=== PATIENT | female | born 1970 | race Caucasian/White ===

== ENCOUNTER → 2021-06-27 09:42 | Outpatient (CLI) | payer OTHER, SELFPAY ==
--- NOTE | ~2021-06-27 | MR_ITS ---
EXAMINATION: MR brain/brain stem wo con EXAM DATE: 06/27/2021 10:17 INDICATION: Migraine. TECHNIQUE: Magnetic resonance imaging (MRI) of the brain/brain stem obtained without contrast. Sagitt al T1, axial diffusion, gradient echo (T2*), T1, T2, FLAIR sequences obtained. There is no prior st udy for comparison. FINDINGS: There are no areas of restricted diffusion to suggest acute infarction. There is no acute hemorrhage seen on the T2*, a hemosiderin sensitive sequence. No intraparenchymal brain mass. The ve ntricles are normal in size. There are no extra-axial collections. Flow voids are seen in the cereb ral arteries on the T2-weighted sequences consistent with their expected patency. The orbits are unr emarkable. Soft tissue is unremarkable. IMPRESSION: Unremarkable brain MRI examination. Reviewed, dictated and finalized at location B.
== END ==
PROVIDERS: PCP Emergency Medicine; Visit Provider Emergency Medicine
DX: G43.909 Migraine, unspecified, not intractable, without status migrainosus (principal)
CPT/HCPCS: 70551

== ENCOUNTER → 2021-09-19 03:35 | Outpatient (CLI) | payer OTHER, SELFPAY ==
[2021-09-19 16:43] LABS: SARS-CoV-2 RNA PCR Negative
== END ==
PROVIDERS: PCP Emergency Medicine; Visit Provider Internal Medicine Gastroenterology
DX: Z01.812 Encounter for preprocedural laboratory examination (principal); Z20.822 Contact with and (suspected) exposure to COVID-19
CPT/HCPCS: C9803; U0003; U0005

== ENCOUNTER 2021-09-22 02:01 | Day surgery (SDC) | payer OTHER, SELFPAY ==
[2021-09-03 13:33] VITALS: BMI 30.8
[2021-09-22 08:30] VITALS: BP 133/82; PULSE 80; RESP 18; TEMP 36.7; O2SAT 97; BMI 33.7
[2021-09-22] MEDS: LACTATED RINGERS 1,000 ML 150 ML IV CONT (08:37)
--- NOTE | 2021-09-22 08:50 | WPDANESEPPF ---
Anes - Initial Pre Proc Eval Procedure: Operation Date: 09/22/21 09:15 Proposed Procedures p Screening Colonoscopy - Romie Osorio MD Date/Time: 09/22/21 08:50 Surgeon: Romie Osorio MD Pre Op Diagnosis: neoplasm screening Patient Data Age: 50 Gender: F Height: 1.65 m Weight: 92 kg Last Vital Signs Temp 98.1 F 09/22/21 08:30 Pulse 80 09/22/21 08:30 Resp 18 09/22/21 08:30 BP 133/82 09/22/21 08:30 Pulse Ox 97 09/22/21 08:30 Allergies Allergy/AdvReac Type Severity Reaction Status Date / Time poison umer extract Allergy Mild RASH Verified 09/22/21 08:29 Home Medications Medication Instructions Recorded Confirmed Type acyclovir 1 applic TOPICAL ONCE 09/03/21 09/03/21 History alprazolam 1 mg PO BID PRN 09/03/21 09/03/21 History cyclobenzaprine 10 mg PO PRN PRN 09/03/21 09/03/21 History tramadol 50 mg PO PRN PRN 09/03/21 09/03/21 History Patient hx anesthesia problems: none Family hx anesthesia problems: none Results Review: All pre-operative results and documents have been reviewed as part of the pre-operative evaluation. PMF Social History Social History Smoking status: Never smoker Alcohol intake: never Substance use: never Substance use type: does not use Living arrangements: with family Spiritual care concerns: No Anes - Eval Final PreProcedure Day of Procedure 09/22/21 08:50 Patient weight: obese Heart: regular rate and rhythm Lungs: clear to auscultation Airway: Mallampati scale class II Neurological: alert and oriented Last oral intake: >/= 8 hours ASA classification: III Emergent: no Anesthetic plan: proceed Anesthesia type and monitoring: general GIVS and standard monitoring Results Review: All pre-operative results and documents have been reviewed as part of the pre-operative evaluation. Informed Consent: The patient's anesthetic plan and its attendant risks and benefits were discussed with the patient/family/POA. Questions were solicited and answers provided to the satisfaction of the patient/family/POA.
--- NOTE | 2021-09-22 08:52 | PM.HPGS ---
History of Present Illness History of Present Illness Consent: Risks, benefits, and alternatives have been discussed and questions answered. Patient agrees to proceed with procedure. Chief complaint: neoplasm screening Narrative: Tawnya Webber is a 50 year old female here for screening colonoscopy, had one in her 20's because rectal bleeding. Review of Systems Constitutional: Constitutional: Denies headache(s) and Denies weakness Eyes: Eyes: Denies blurry vision ENT: Reports Normal hearing present, Denies headache(s) and Denies neck pain Cardiovascular: Cardiovascular: Denies chest pain and Denies dyspnea Respiratory: Respiratory: Denies dyspnea Gastrointestinal: Gastrointestinal: Reports no additional gastrointestinal complaints Genitourinary: Genitourinary: Denies dysuria Musculoskeletal: Musculoskeletal: Denies neck pain Integumentary/Breasts: Skin/Breast: Denies dry skin Neurologic: Reports Normal hearing present, Denies headache(s) and Denies weakness Psychiatric: Psychiatric: Denies anxiety Endocrine: Endocrine: Denies change in body appearance Hematologic/Lymphatic: Hematologic/Lymphatic: Denies easy bleeding Allergic/Immunologic: Allergic/Immunologic: Denies urticaria PMFSH Past Medical History Medical History (Updated 09/22/21 @ 08:53 by Romie Osorio MD) Colon cancer screening Social History Social History Smoking status: Never smoker Alcohol intake: never Substance use: never Substance use type: does not use Living arrangements: with family Spiritual care concerns: No Meds Home Medications and Allergies Home Medications Medication Instructions Recorded Confirmed Type acyclovir 1 applic TOPICAL ONCE 09/03/21 09/03/21 History alprazolam 1 mg PO BID PRN 09/03/21 09/03/21 History cyclobenzaprine 10 mg PO PRN PRN 09/03/21 09/03/21 History tramadol 50 mg PO PRN PRN 09/03/21 09/03/21 History Allergies Allergy/AdvReac Type Severity Reaction Status Date / Time poison umer extract Allergy Mild RASH Verified 09/22/21 08:29 Vital Signs Vital Signs - 24 hr 09/22/21 08:30 Temperature 98.1 F Pulse Rate 80 Respiratory Rate 18 Blood Pressure 133/82 Pulse Oximetry 97 Exam Const: General: comfortable and no acute distress HENMT: General nose exam: Normal nares present Eyes: General: appearance normal, both eyes and all related structures Neck: Neck: no JVD Resp: Auscultation: clear to auscultation bilaterally Cardio: Rate: regular rate Rhythm: regular rhythm GI: Inspection: non-distended GI Palp: Yes Soft to palpation Skin: General skin exam: normal color Neuro: General: gait normal Speech: normal speech Extrem: General: normal to inspection Psych: Mental Status: mental status grossly normal Assessment and Plan Assessment and plan (1) Colon cancer screening: Code(s): Z12.11 - Encounter for screening for malignant neoplasm of colon Status: Acute Assessment and Plan: colonoscopy
[2021-09-22 09:15] VITALS: BP 115/58; PULSE 76; RESP 32; O2SAT 100
[2021-09-22 09:25] VITALS: BP 108/68; PULSE 69; RESP 19; O2SAT 100
[2021-09-22 09:35] VITALS: BP 124/68; PULSE 75; RESP 21; O2SAT 100
== END 2021-09-22 09:45 | disposition home or self-care (01) ==
PROVIDERS: PCP Emergency Medicine; Visit Provider Internal Medicine Gastroenterology
PROC: 0DJD8ZZ Inspection of Lower Intestinal Tract, Via Natural or Artificial Opening Endoscopic (ICD-10-PCS; CPT 45378; principal; 2021-09-22 09:15)
DX: Z12.11 Encounter for screening for malignant neoplasm of colon (principal); D12.5 Benign neoplasm of sigmoid colon; K63.5 Polyp of colon; K64.8 Other hemorrhoids; E66.9 Obesity, unspecified; Z68.33 Body mass index [BMI] 33.0-33.9, adult
CPT/HCPCS: 45385; 45380; 88305; C9803; J2704; J7120; U0003; U0005

== ENCOUNTER → 2022-07-09 12:42 | Outpatient (CLI) | payer OTHER, SELFPAY ==
--- NOTE | ~2022-07-09 | XR_ITS ---
XR fl inj hip LT for MR/CT DATE: 07/09/2022 13:54 INDICATION: Pre-MRI multi-Devin intra-articular left hip contrast injection TECHNIQUE: The purpose of the procedure, technique and potential complications were discussed with th e patient. The patient indicated understanding and gave consent. Timeout procedure confirmed correct patient, procedure and sidedness. The skin over the anterolateral aspect of the proximal left thigh was prepared with sterile Betadine solution. Sterile drape was applied. 1% Xylocaine local anesthetic was administered to the skin and u nderlying subcutaneous tissues. A 22-gauge spinal needle was introduced into the left hip joint space with fluoroscopic guidance. Con trast material injection confirmed intra-articular position of the needle tip. 12 CC of mixed multi-H ance, Omnipaque 350 and 1% Xylocaine was injected into the left hip joint without any significant res istance, with confirmation of intra-articular position of contrast material with intermittent fluoros copy. The patient tolerated the procedure well, without complaint or apparent complication. IMPRESSION: Fluoroscopically guided percutaneous intra-articular injection of dilute multi-Devin cont rast material Reviewed, dictated and finalized at Location A. Reviewed, dictated and finalized at location B. IMPRESSION: Fluoroscopically guided percutaneous intra-articular injection of d ilute multi-Devin contrast material
--- NOTE | ~2022-07-09 | MR_ITS ---
EXAMINATION: MR hip LT w con DATE: 07/09/2022 14:45 INDICATION: Left hip pain. TECHNIQUE: Magnetic resonance imaging (MRI) of the left hip was performed without intravenous contras t after intra-articular injection of contrast (MR arthrogram). COMPARISON: None FINDINGS: Bones/cartilage: Bone alignment is normal. No fracture. The femoral head/neck morphologies are normal. Small field-of- view images of left hip demonstrate partial-thickness cartilage loss and tiny osteophytes. Labrum: The left acetabular labrum is intact. Fluid: The left hip joint is well distended by contrast. The right hip joint effusion. No significant trocha nteric bursitis. Soft tissues: The hamstring tendon origins are normal. The iliopsoas tendons are normal. The gluteus minimus and gl uteus medius tendons are normal. There are nabothian cysts in the cervix. IMPRESSION: 1. Mild left hip osteoarthritis. Reviewed, dictated and finalized at location A.
== END ==
PROVIDERS: PCP Orthopaedic Surgery; Visit Provider Orthopaedic Surgery
DX: M16.12 Unilateral primary osteoarthritis, left hip (principal)
CPT/HCPCS: 20610; 73722; 77002; A9577; Q9967

== ENCOUNTER 2022-09-10 13:44 | Observation (INO) | payer OTHER, SELFPAY ==
[2022-09-10] VITALS (41 sets, daily range): BP systolic 142–209; BP diastolic 66–97; PULSE 47–66; RESP 13–26; TEMP 36.2–36.7; O2SAT 97–100; BMI 33.3
--- NOTE | ~2022-09-10 | XR_ITS ---
EXAMINATION: XR chest 2V DATE: 09/10/2022 14:34 INDICATION: Intermittent chest pain TECHNIQUE: PA and lateral views of the chest are obtained. COMPARISON: None available FINDINGS: The lungs are free of acute opacities. No pleural effusion or pneumothorax. The cardiomedia stinal silhouette is normal. There is mild thoracic spondylosis. IMPRESSION: 1. No acute cardiopulmonary abnormality. Reviewed, dictated and finalized at location F.
--- NOTE | 2022-09-10 14:04 | ECG_ITS ---
Measurements Intervals [place] Rate: 46 P: 53 NH: 144 QRS: 53 QRSD: 88 T: 43 QT: 476 QTc: 420 Interpretive Statements SINUS BRADYCARDIA POSSIBLE LEFT ATRIAL ENLARGEMENT [-0.1mV P WAVE IN V1/V2] NONSPECIFIC ST-T WAVE ABNORMALITY NO PREVIOUS ECG AVAILABLE FOR COMPARISON Electronically Signed On 09-10-2022 15:54:16 CDT by Radha Devlin M.D.
[2022-09-10 14:19] LABS: Basophils Absolute Auto 0.1 K/mm3 (0.0-0.1); Basophils Percent Auto 0.6 % (0.2-1.2); Eosinophils Absolute Auto 0.2 K/mm3 (0-0.3); Eosinophils Percent Auto 3.1 % (0-4.4); Hematocrit 38.6 % (37.0-47.0); Hemoglobin 12.7 g/dL (12.0-15.0); Immature Granulocyte Absolute 0.02 K/mm3 (0.00-0.031); Immature Granulocyte Percent A 0.3 % (0-0.5); Lymphocytes Absolute Auto 2.69 K/mm3 (0.9-3.2); Lymphocytes Percent Auto 34.7 % (18.3-44.2); Mean Corpuscular HGB Conc 32.9 g/dl (32-36); Mean Corpuscular Volume 91.3 fl (80-100); Mean Platelet Volume 10.2 fl (7.4-10.4); Monocytes Absolute Auto 0.6 K/mm3 (0.1-0.6); Monocytes Percent Auto 7.6 % (2.6-8.5); Neutrophils Absolute Auto 4.2 K/mm3 (1.3-6.7); Neutrophils Percent Auto 53.7 % (45.5-73.1); Platelet Count Result 321 k/mm3 (150-375); Red Blood Count 4.23 M/mm3 (4.2-5.4); Red Cell Distribution Width 13.7 % (11.5-14.5); White Blood Count 7.8 K/mm3 (4.5-10.0)
[2022-09-10 14:30] LABS: Alanine Aminotransferase 51 U/L (6-35); Albumin Level 4.3 g/dL (3.5-5.1); Alkaline Phosphatase 64 U/L (38-126); Anion Gap 8 mmol/L (8-16); Aspartate Amino Transferase 46 U/L (14-36); Bilirubin,Total 0.5 mg/dL (0.2-1.3); Blood Urea Nitrogen 11 mg/dL (7-17); Calcium 8.6 mg/dL (8.4-10.2); Carbon Dioxide 27 mmol/L (22-30); Chloride 103 mmol/L (98-107); Estimated CRCL calculation 103 ml/min; Estimated Glomerular Filt Rate > 60; Glucose 99 mg/dL (65-110); Lipase 96 U/L (23-300); Potassium 3.4 mmol/L (3.4-5.0); Sodium 138 mmol/L (137-145)
[2022-09-10 14:31] LABS: Partial Thromboplastin Time 26.4 SECONDS (22.3-36.8); Prothrombin Time 12.5 Seconds (11.1-14.7)
[2022-09-10 14:42] LABS: Troponin I < 0.012 ng/mL (0.000-0.034)
--- NOTE | 2022-09-10 15:43 | ED.GENADULT ---
HPI - General Adult General Chief complaint: Recheck/Abnormal Lab/Rx Stated complaint: High blood pressure Time Seen by Provider: 09/10/22 14:16 History of Present Illness HPI narrative: 51-year-old female with no significant prior history of hypertension presenting the emergency department for evaluation of intermittent chest pain, hypertension 220/120 with intermittent headaches. Patient states over the last few days she has had worsening fatigue. Patient states that she did have some exertional chest pain. Patient states that today she checked her blood pressure at work multiple times and was found to have a blood pressure of 220/120. Patient has no prior history of hypertension. Patient denies any prior history of coronary artery disease. Patient does report a significant family history of heart disease. Related Data Home Medications Medication Instructions Recorded Confirmed acyclovir 5 % topical cream 1 applic topical ONCE 09/03/21 09/03/21 alprazolam 1 mg tablet 1 mg PO BID PRN Anxiety 09/03/21 09/03/21 cyclobenzaprine 10 mg tablet 10 mg PO PRN PRN Headache 09/03/21 09/03/21 tramadol 50 mg tablet 50 mg PO PRN PRN Pain 09/03/21 09/03/21 Allergies Allergy/AdvReac Type Severity Reaction Status Date / Time poison umer extract Allergy Mild RASH Verified 09/22/21 08:29 Review of Systems Review of Systems: CONSTITUTIONAL: Denies fever, chills, or sweats. EYES: Denies visual changes, redness, or discharge. ENT: Denies rhinorrhea, congestion, sore throat, or otalgia. CARDIOVASCULAR: See HPI RESPIRATORY: Denies cough or dyspnea. GASTROINTESTINAL: Denies abdominal pain, nausea, vomiting, or diarrhea. GENITOURINARY: Denies dysuria or hematuria. SKIN: Denies rash or itching. MUSCULOSKELETAL: Denies back pain, joint pain, or myalgia. NEUROLOGIC: Denies headache, numbness, or weakness. PMFSH Past Medical History Medical History (Updated 09/10/22 @ 15:22 by Oscar Chen MD) Colon cancer screening Social History Social History Smoking status: Never smoker Alcohol intake: never Substance use: never Substance use type: does not use Spiritual care concerns: No Exam Narrative: APPEARANCE: Well appearing, no pain, no distress, well-nourished. HEAD: normocephalic, atraumatic. EYES: PERRLA/EOMI, conjunctivae clear. NOSE: Normal no drainage THROAT: Pharynx clear, no exudate. NECK: Supple. No adenopathy, no masses. RESPIRATORY: Airway patent, respirations nonlabored. Clear to auscultation bilaterally, no rales, rhonchi, wheezing. CARDIOVASCULAR: Regular rate and rhythm without murmurs rubs or gallops. ABDOMINAL: Soft, nontender, nondistended, normal bowel sounds MUSCULOSKELETAL: Moves all extremities. Strength/ROM intact, No edema, No calf tenderness. NEURO: Alert. Cranial nerves II through XII intact. Grossly intact SKIN: Warm, dry. Normal Color Course Course Emergency Course: Chest x-ray shows no acute cardiopulmonary normality. EKG shows sinus bradycardia with no evidence of acute STEMI. Patient's blood pressure is improved in the emergency room. Patient is denying any current chest pain. Due to her family history and symptoms Case was discussed with the hospitalist and patient is being admitted for hypertensive urgency and further ACS rule out. Vital Signs Vital signs: Vital Signs Temperature 97.2 F L 09/10/22 14:01 Pulse Rate 53 L 09/10/22 14:01 Respiratory Rate 16 09/10/22 14:01 Blood Pressure 188/95 H 09/10/22 14:01 Pulse Oximetry 99 09/10/22 14:01 Oxygen Delivery Room Air 09/10/22 14:01 Temperature 97.2 F L 09/10/22 14:01 Pulse Rate 52 L 09/10/22 15:00 Respiratory Rate 20 09/10/22 15:00 Blood Pressure 160/79 H 09/10/22 15:04 Pulse Oximetry 97 09/10/22 15:00 Oxygen Delivery Room Air 09/10/22 14:01 Medical Decision Making Vital Signs Vital Signs: Vital Signs Temperature 97.2 F L 09/10/22 14:01 Pulse Rate 53 L 09/10/22 14:01 Respiratory
--- NOTE | 2022-09-10 15:55 | PC.NURSE ---
Pt substance abuse prevention coordinator light requesting to speak with nurse. Pt states she does not want to be admitted to the hospital. Dr. Chen at bedside to speak with patient at this time.
--- NOTE | 2022-09-10 16:00 | PC.NURSE ---
Dr. Chen spoke with patient. She is now agreeable to admission.
--- NOTE | 2022-09-10 16:57 | PM.IMHP ---
H&P: HPI History of Present Illness Date/Time: 09/10/22 16:57 Chief Complaint: High blood pressure Narrative: This is a 51-year-old female patient who has no prior history of hypertension. She has a history of anxiety. The patient was complaining of pressure behind her eyes and the total her head. Patient typically checks her blood pressure at wear and it was reading 220/120. Patient has been feeling fatigued. The patient worked at her job from - today stated she could not take it any further. Patient stating that she was having right shoulder pain and right chest pain. The pain is now gone. She has no prior history of coronary artery disease but has a strong family history. The patient stated that she is typically active. Her troponins are negative x2. Her COVID is negative. Chest x-ray was read as no acute cardiopulmonary abnormality. The patient stated that she took an aspirin at home when she developed chest pain. The patient's heart rate has been anywhere from 30-50. I ordered p.r.n. hydralazine for her hypertension. Her blood pressure is now 169/66. The patient stated that her blood pressure is typically 130/80. The patient was given Lopressor in the emergency room. The patient is being admitted for observation status on the date of service of 09/10/2022. Review of Systems Review of Systems: See HPI All systems reviewed & are unremarkable except as noted in HPI and below Constitutional: Constitutional: Reports as per HPI and Reports no additional constitutional complaints Eyes: Eyes: Reports as per HPI and Reports no additional eye complaints ENT: Reports system reviewed and no additional complaints, except as documented and Reports Normal hearing present Cardiovascular: Cardiovascular: Reports no additional cardiovascular complaints Respiratory: Respiratory: Reports no additional respiratory complaints and Reports no additional respiratory complaints Gastrointestinal: Gastrointestinal: Reports as per HPI and Reports no additional gastrointestinal complaints Musculoskeletal: Musculoskeletal: Reports no additional musculoskeletal complaints Integumentary/Breasts: Skin/Breast: Reports system reviewed and no additional complaints, except as docu and Reports as per HPI Neurologic: Reports system reviewed and no additional complaints, except as documented, Reports as per HPI and Reports Normal hearing present Psychiatric: Psychiatric: Reports no additional psychiatric complaints and Reports as per HPI Endocrine: Endocrine: Reports no additional endocrine complaints Hematologic/Lymphatic: Hematologic/Lymphatic: Reports no additional hematologic/lymphatic complaints Allergic/Immunologic: Allergic/Immunologic: Reports no additional allergic/immunologic complaints PMFSH Past Medical History Medical History (Updated 09/10/22 @ 17:02 by Khushboo Carlton NP) Anxiety Colon cancer screening Tubal Surgical History Surgical History (Updated 09/10/22 @ 17:09 by Khushboo Carlton NP) H/O oophorectomy H/O sinus surgery History of bunionectomy Family History Family History (Updated 09/10/22 @ 17:06 by Khushboo Carlton NP) Grandparent Acute myocardial infarction Sibling Acute myocardial infarction Mother Diabetes mellitus Kidney failure Father Ischemic bowel disease Social History Social History (Updated 09/10/22 @ 18:50 by Khushboo Carlton NP) Social History: The patient lives with her significant other Oscar. She has no biological children. She does have a dog and a cat. 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 She occasionally drinks alcohol socially. She has never smoked. She does not use any marijuana or illicit drugs. She has no power of insurance attorney. Code status full code Smoking status: Never smoker Alcohol intake: never Substance use: never Substance use type: does not use Spiritual care concerns: No Meds Home Medications and Allergies Home Medicat
[2022-09-10 17:01] LABS: SARS-CoV-2 RNA PCR Negative
[2022-09-10] MEDS: hydrALAZINE HCL 20 MG/ML VIAL 10 MG IV PUSH (17:44)
[2022-09-10 17:56] LABS: Troponin I < 0.012 ng/mL (0.000-0.034)
[2022-09-10] MEDS: ALPRAZolam (*CRX) 0.5 MG TABLET 1 MG PO (20:01)
--- NOTE | 2022-09-10 20:07 | ADMGEN ---
This patient, Tawnya Webber, was admitted to IMU Room 231-01. Patient/family oriented to hospital policies and general routines including ID bracelet, bed and alarms, visiting hours, pain management, procedures, bathroom and other care routines, personal items, smoking policy, room service/diet, and visiting hours. Information on how to activate the Rapid Response Team has been discussed. Patient/Family are encouraged to report perceived risks to care and to ask questions if they do not understand what they are told or what they should do.
[2022-09-10 20:24] LABS: Troponin I < 0.012 ng/mL (0.000-0.034)
[2022-09-10] MEDS: METOPROLOL TARTRATE 6.25 MG TABLET PO (20:55)
[2022-09-11] VITALS (10 sets, daily range): BP systolic 107–127; BP diastolic 50–71; PULSE 52–63; RESP 16–20; TEMP 36.4–36.7; O2SAT 94–99
--- NOTE | 2022-09-11 | EST_ITS ---
Patient Info Name: Tawnya Webber Age: 51 years : 1970 Gender: Female Ht: 65 in Wt: 200 lbs BSA: 2.07 m2 HR: 56 bpm BP: 136 / 89 mmHg Heart Rhythm: Sinus Rhythm Exam Date: 09/11/2022 8:17 AM Exam Location: [facility] Stress Patient Status: Inpatient Admit Date: 09/10/2022 Staff Ordering Physician: Khushboo Carlton NP Attending Provider: Trino Shell MD Exercise Technologist: Marija Mcnulty CT Nurse: MERT KAPOOR Exam Type: CA stress test treadmill Study Info Indications R07.9 - Chest pain, unspecified A treadmill exercise stress test was performed. Summary 1. Sinus bradycardia with long QT interval. 2. No diagnostic ST or T-wave abnormality. 3. Clinically and electrocardiographically negative stress test at 85% age predicted maximum heart rate. Protocol: [place] Stress ECG Details Stage: REST Duration (min): 0 min : 59 sec Speed (mph): 0.0 Grade (%): 0 HR (bpm): --- SBP (mmHg): 136 DBP (mmHg): 89 METS: --- Stage: REST Duration (min): 1 min : 33 sec Speed (mph): 0.0 Grade (%): 0 HR (bpm): 59 SBP (mmHg): 136 DBP (mmHg): 89 METS: --- Stage: REST Duration (min): 8 min : 6 sec Speed (mph): 0.0 Grade (%): 0 HR (bpm): 56 SBP (mmHg): 136 DBP (mmHg): 89 METS: --- Stage: STAGE 1 Duration (min): 1 min : 0 sec Speed (mph): 1.7 Grade (%): 10 HR (bpm): 86 SBP (mmHg): 136 DBP (mmHg): 89 METS: --- Stage: STAGE 1 Duration (min): 2 min : 0 sec Speed (mph): 1.7 Grade (%): 10 HR (bpm): 99 SBP (mmHg): 136 DBP (mmHg): 89 METS: --- Stage: STAGE 1 Duration (min): 3 min : 0 sec Speed (mph): 1.7 Grade (%): 10 HR (bpm): 102 SBP (mmHg): 184 DBP (mmHg): 89 METS: --- Stage: STAGE 2 Duration (min): 1 min : 0 sec Speed (mph): 2.5 Grade (%): 12 HR (bpm): 109 SBP (mmHg): 184 DBP (mmHg): 89 METS: --- Stage: STAGE 2 Duration (min): 2 min : 0 sec Speed (mph): 2.5 Grade (%): 12 HR (bpm): 120 SBP (mmHg): 175 DBP (mmHg): 91 METS: --- Stage: STAGE 2 Duration (min): 3 min : 0 sec Speed (mph): 2.5 Grade (%): 12 HR (bpm): 122 SBP (mmHg): 175 DBP (mmHg): 91 METS: --- Stage: STAGE 3 Duration (min): 1 min : 0 sec Speed (mph): 3.4 Grade (%): 14 HR (bpm): 136 SBP (mmHg): 175 DBP (mmHg): 91 METS: --- Stage: STAGE 3 Duration (min): 2 min : 0 sec Speed (mph): 3.4 Grade (%): 14 HR (bpm): 142 SBP (mmHg): 175 DBP (mmHg): 91 METS: --- Stage: STAGE 3 Duration (min): 2 min : 0 sec Speed (mph): 3.4 Grade (%): 14 HR (bpm): 142 SBP (mmHg): 175 DBP (mmHg): 91 METS: --- Stage: RECOVERY Duration (min): 1 min : 0 sec Speed (mph): 0.0 Grade (%): 0 HR (bpm): 109 SBP (mmHg): 211 DBP (mmHg):
--- NOTE | 2022-09-11 | ECHO_ITS ---
Patient Info Name: Tawnya Webber Age: 51 years : 1970 Gender: Female Ht: 65 in Wt: 200 lbs BSA: 2.07 m2 HR: 56 bpm BP: 127 / 70 mmHg Heart Rhythm: Sinus Rhythm Technical Quality: Good Exam Date: 09/11/2022 10:48 AM Exam Location: [facility] Pulmonary Patient Status: Inpatient Admit Date: 09/10/2022 Staff Ordering Physician: Khushboo Carlton NP Compliance Consultant: Kimberley Forman RDCS Attending Provider: Trino Shell MD Referring Physician: Bianka PRESSLEY; Exam Type: CA echo doppler color flow Study Info Indications R55 - Syncope and collapse Complete two-dimensional, color flow and Doppler transthoracic echocardiogram is performed. Summary 1. Complete two-dimensional, color flow and Doppler transthoracic echocardiogram is performed. 2. Left ventricular chamber dimension is normal. 3. Left ventricular systolic function is normal, estimated at 65-70%. 4. No ischemic wall motion abnormalities. 5. Left atrial chamber dimension is mildly enlarged. 6. Trivial amount of mitral and tricuspid valve regurgitation. Left Ventricle Left ventricular chamber dimension is normal. Left ventricular systolic function is normal, estimated at 65-70%. The left ventricular diastolic function is normal. No ischemic wall motion abnormalities. Right Ventricle Right ventricular chamber dimension is normal. Left Atria Left atrial chamber dimension is mildly enlarged. Right Atria Right atrial chamber dimension is normal. Aortic Valve The aortic valve is trileaflet. There is mild aortic valve sclerosis. Pulmonic Valve The pulmonic valve is normal. Mitral Valve The mitral valve has normal leaflets. There is trace mitral valve regurgitation. Tricuspid Valve The tricuspid valve leaflets are normal. There is trace tricuspid valve regurgitation. Pericardium/Pleural The pericardium appears normal. Aorta The aortic root size at the sinus of Valsalva is normal. Left Ventricular Outflow Tract Name Value Normal LVOT 2D LVOT Diameter 2.0 cm LVOT Doppler LVOT Peak Gradient 8 mmHg LVOT Mean Gradient 3 mmHg LVOT VTI 29 cm LVOT VTI/AV VTI Ratio 0.7 LVOT Stroke Volume 88 ml LVOT CO 4.8 l/min LVOT CI 2.3 l/min/m2 Pulmonic Valve Name Value Normal RVOT Doppler RVOT Peak Gradient 2 mmHg PV Doppler PV Peak Gradient 5 mmHg Mitral Valve Name Value Normal
[2022-09-11 05:36] LABS: Basophils Absolute Auto 0.1 K/mm3 (0.0-0.1); Basophils Percent Auto 0.9 % (0.2-1.2); Eosinophils Absolute Auto 0.3 K/mm3 (0-0.3); Eosinophils Percent Auto 3.6 % (0-4.4); Hemoglobin 13.4 g/dL (12.0-15.0); Immature Granulocyte Absolute 0.02 K/mm3 (0.00-0.031); Immature Granulocyte Percent A 0.3 % (0-0.5); Lymphocytes Absolute Auto 2.39 K/mm3 (0.9-3.2); Lymphocytes Percent Auto 30.6 % (18.3-44.2); Mean Corpuscular HGB Conc 32.7 g/dl (32-36); Mean Corpuscular Hemoglobin 29.7 pg (26-34); Mean Corpuscular Volume 90.9 fl (80-100); Mean Platelet Volume 10.5 fl (7.4-10.4); Monocytes Absolute Auto 0.7 K/mm3 (0.1-0.6); Neutrophils Absolute Auto 4.4 K/mm3 (1.3-6.7); Neutrophils Percent Auto 55.6 % (45.5-73.1); Platelet Count Result 333 k/mm3 (150-375); Red Blood Count 4.51 M/mm3 (4.2-5.4); Red Cell Distribution Width 13.6 % (11.5-14.5); White Blood Count 7.8 K/mm3 (4.5-10.0)
[2022-09-11 05:52] LABS: Alanine Aminotransferase 44 U/L (6-35); Albumin Level 3.9 g/dL (3.5-5.1); Alkaline Phosphatase 50 U/L (38-126); Anion Gap 8 mmol/L (8-16); Aspartate Amino Transferase 29 U/L (14-36); Blood Urea Nitrogen 15 mg/dL (7-17); Calcium 8.6 mg/dL (8.4-10.2); Carbon Dioxide 26 mmol/L (22-30); Chloride 102 mmol/L (98-107); Estimated CRCL calculation 89 ml/min; Estimated Glomerular Filt Rate > 60; Glucose 113 mg/dL (65-110); Lipase 28 U/L (23-300); Magnesium 1.8 mg/dL (1.6-2.3); Potassium 3.6 mmol/L (3.4-5.0); Sodium 136 mmol/L (137-145)
[2022-09-11 05:56] LABS: Lactic Acid Reflex 0.9 mmol/L (0.7-2.0)
[2022-09-11] MEDS: METOPROLOL TARTRATE 6.25 MG TABLET PO (10:08)
[2022-09-11] MEDS: ASPIRIN 81 MG ENTERIC TABLET PO (10:08)
[2022-09-11] MEDS: ENOXAPARIN 40 MG/0.4 ML SYRINGE SUB-Q (10:08)
--- NOTE | 2022-09-11 14:38 | PM.CNCAR ---
Assessment and Plan Assessment and plan (1) Chest pain: Code(s): R07.9 - Chest pain, unspecified Status: Acute Plan This is a 51-year-old lady with no prior history of hypertension came to the emergency room because of significantly elevated blood pressure yesterday. She has been given some metoprolol and her blood pressure is markedly improved. Exercise stress testing this morning did not show any evidence of coronary disease and echocardiogram does not show any LV dysfunction or any regional wall motion abnormalities. I believe she can be discharged from my perspective and follow up with her PCP for her hypertension. She does not require ongoing follow-up in our office at this time Kumar Miranda MD [facility] History of Present Illness History of Present Illness Consult date/time: 09/11/22 14:38 Consult reason: chest pain Reason For Visit: hypertension,chest pain Narrative: This is a very pleasant 51-year-old lady I am seeing at the request of the hospitalist because of chest pain. She is a lady without any history of cardiac problems in the past and really a paucity of general medical problems. She does receive a prescription for some alprazolam from her PCP for OM occasional anxiety. She states she was in her usual state of health yesterday morning which he is getting weighted go to work and she noticed a dull central headache that is a bit unusual for her. 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 She was feeling unwell most of the day and she had some coworkers take her blood pressure and found that it was rather high. She tried to sit down and relax but her blood pressure was taken several more times and it was in excess of 200 mmHg and so she was advised to come to the emergency room. Off and on during the day she had some mild central chest discomfort which she was not particularly concerned about. She says that was not the principal reason for her coming to the emergency room her elevated blood pressure was her principal concern. The pain did not associated with any diaphoresis nausea or vomiting there was no radiation of pain to any other location. Her electrocardiogram in the emergency room was essentially unremarkable and her troponin levels were negative. The primary team ordered a stress test for her this morning as well as an echocardiogram. Her stress test was clinically and electrocardiographically negative at 85% of age predicted maximum heart rate. Her echocardiogram demonstrated trivial amounts of mitral and tricuspid valve regurgitation. Her LV size and function were normal there were no ischemic wall motion abnormalities identified. She is feeling well now is hoping that she can go home. He does not have a prior history of hypertension. She does describe a family history of a brother and 2 other relatives with premature coronary disease. Review of Systems Constitutional: Constitutional: Reports no additional constitutional complaints Eyes: Eyes: Reports no additional eye complaints ENT: Reports system reviewed and no additional complaints, except as documented Cardiovascular: Cardiovascular: Reports as per HPI Respiratory: Respiratory: Reports no additional respiratory complaints Gastrointestinal: Gastrointestinal: Reports no additional gastrointestinal complaints Musculoskeletal: Musculoskeletal: Reports no additional musculoskeletal complaints Integumentary/Breasts: Skin/Breast: Reports system reviewed and no additional complaints, except as docu Neurologic: Reports system reviewed and no additional complaints, except as documented Endocrine: Endocrine: Reports no additional endocrine complaints Hematologic/Lymphatic: Hematologic/Lymphatic: Reports no additional hematologic/lymphatic complaints Allergic/Immunologic: Allergic/Immunologic: Reports no additional allergic/immunologic complaints [facility] Past Medical History Medical History (Updated 09/10/22 @
--- NOTE | 2022-09-11 14:56 | PM.DS ---
DS: Admitting Diagnosis Discharge Date 09/11/22 Admitting Diagnosis Chest pain DS: Discharge Diagnosis Discharge Diagnosis (1) Chest pain: Code(s): R07.9 - Chest pain, unspecified Status: Acute (2) Hypertensive urgency: Code(s): I16.0 - Hypertensive urgency Status: Acute (3) Anxiety: Code(s): F41.9 - Anxiety disorder, unspecified Status: Acute (4) Elevated LFTs: Code(s): R79.89 - Other specified abnormal findings of blood chemistry Status: Acute DS: Summary Hospital Course Reason for hospitalization: 51yo female with anxiety here for elevated blood pressure Hospital Course: Patient over the last few days has been feeling fatigued and having intermittent chest pain. She present to the emergency room because she check her blood pressure work and it was 220/120. Blood pressure here was 188/95. Lab workup was unrevealing except for mildly elevated liver enzymes with AST 46 ALT 51. On repeat, these values trended downward. Lipase was normal. Troponin was negative x3. COVID was negative. Chest x-ray was clear. EKG showed sinus bradycardia rate of [address] T wave changes. Echocardiogram showed EF of 65-70% without wall motion abnormalities. Stress test shows sinus bradycardia with long QT interval. No diagnostic ST-T or T-wave changes. Clinically and electrocardiographically negative stress test at 85% age predicted maximum heart rate. Blood pressure did get to as high as 211/92 in recovery. Patient was given 1 dose of hydralazine and started on metoprolol low dose. Patient had resolution of her symptoms. She overall did well to be discharged home on 09/11/2022. Discussed with Cardiology Status at Discharge Cognitive/behavioral status at discharge: Stable Time Spent with Patient Time attestation: Total time spent providing and/or coordinating discharge services: 34 minutes Exam Narrative: AF 97.5 107/50 57 18 97% ra Gen - NARD Chest - CTA bilaterally, nml RR CV - RRR S1/S2. Tele showing no significant dysrhythmias Abd - Soft, NT/ND, Positive BS Ext - No pedal edema Neuro - Alert and oriented. Nonfocal exam. Psych - Nml mood and affect Skin - Warm and dry DS: Data Data Completed and Pending Labs on day of discharge: Labs from last 24 hours 09/11/22 09/11/22 09/11/22 05:16 05:16 05:16 WBC RBC Hgb Hct MCV MCH MCHC RDW Plt Count MPV Immature Gran % (Auto) Neut % (Auto) Lymph % (Auto) [place] % (Auto) Eos % (Auto) Baso % (Auto) Lymph # (Auto) [place] # (Auto) Eos # (Auto) Baso # (Auto) Abs Immat Gran (auto) Absolute Neuts (auto) Absolute Nucleated RBC Nucleated RBC % Sodium 136 L Potassium 3.6 Chloride 102 Carbon Dioxide 26 Anion Gap 8 BUN 15 Creatinine 0.70 Estim Creat Clear Calc 89 Estimated GFR > 60 Glucose 113 H Lactic Acid 0.9 Calcium 8.6 Magnesium 1.8 Total Bilirubin 1.0 AST 29 ALT 44 H Alkaline Phosphatase 50 Troponin I Total Protein 6.0 L Albumin 3.9 Lipase 28 TSH (Reflex) 1.730 SARS-CoV-2 RNA (RT-PCR) 09/11/22 09/10/22 09/10/22 05:16 19:51 17:30 WBC 7.8 RBC 4.51 Hgb 13.4 Hct 41.0 MCV 90.9 MCH 29.7 MCHC 32.7 RDW 13.6 Plt Count 333 MPV 10.5 H Immature Gran % (Auto) 0.3 Neut % (Auto) 55.6 Lymph % (Auto) 30.6 [place] % (Auto) 9.0 H Eos % (Auto) 3.6 Baso % (Auto) 0.9 Lymph # (Auto) 2.39 [place] # (Auto) 0.7 H Eos # (Auto) 0.3 Baso # (Auto) 0.1 Abs Immat Gran (auto) 0.02 Absolute Neuts (auto) 4.4 Absolute Nucleated RBC 0.0 Nucleated RBC % 0.0 Sodium Potassium Chloride Carbon Dioxide Anion Gap BUN Creatinine Estim Creat Clear Calc Estimated GFR Glucose Lactic Acid Calcium Magnesium Total Bilirubin AST ALT Alkal
== END 2022-09-11 16:00 | disposition home or self-care (01) ==
LOC: ANHED 15:22 → ANHIMU 17:41
PROVIDERS: Nurse Practitioner; Admitting Provider Internal Medicine; Emergency Provider Emergency Medicine; PCP Anesthesiology; Visit Provider Internal Medicine
DX: R07.9 Chest pain, unspecified (principal); I16.0 Hypertensive urgency; F41.9 Anxiety disorder, unspecified; R79.89 Other specified abnormal findings of blood chemistry; Z20.822 Contact with and (suspected) exposure to COVID-19
CPT/HCPCS: 36415; 71046; 80053; 83605; 83690; 83735; 84443; 84484; 85025; 85610; 85730; 93005; 93017; 93306; 96372; 96374; 99285; A9270; C9803; G0378; J0360; J1650; U0003; U0005

== ENCOUNTER 2022-11-03 19:44 | Emergency (ER) | payer OTHER, SELFPAY ==
[2022-11-03 19:54] VITALS: BP 145/84; PULSE 67; RESP 16; TEMP 36.7; O2SAT 97
--- NOTE | 2022-11-03 20:05 | ED.GENADULT ---
HPI - General Adult General Chief complaint: Upper Respiratory Infection Stated complaint: Sore Throat, Running Nose, Ears Irritation Source: patient Mode of arrival: ambulatory Limitations: no limitations History of Present Illness HPI narrative: PATIENT PRESENTS FOR EVALUATION OF SICK SYMPTOMS SINCE YESTERDAY. SYMPTOMS INCLUDE SINUS CONGESTION, RHINORRHEA, SORE THROAT, EAR IRRITATION BILATERALLY. NO FEVER, CHILLS, NAUSEA, VOMITING, DIARRHEA, SIGNIFICANT COUGH. 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 SHE DOES NOT SMOKE. SHE HAS TRIED TAKING SUDAFED, TYLENOL AND IBUPROFEN WITH SOME MILD IMPROVEMENT IN HER SYMPTOMS THEREAFTER. SHE HAD COVID IN NOVEMBER 2020. Related Data Home Medications Medication Instructions Recorded Confirmed alprazolam 1 mg tablet 1 mg PO BID 09/03/21 11/03/22 Allergies Allergy/AdvReac Type Severity Reaction Status Date / Time poison umer extract Allergy Mild RASH Verified 11/03/22 20:03 Review of Systems Review of Systems: CONSTITUTIONAL: DENIES FEVER, CHILLS, OR SWEATS. EYES: DENIES VISUAL CHANGES, REDNESS, OR DISCHARGE. ENT: REPORTS SINUS CONGESTION, CLEAR RHINORRHEA, SORE THROAT, BILATERAL EAR IRRITATION CARDIOVASCULAR: DENIES CHEST PAIN, PALPITATIONS, OR EDEMA. RESPIRATORY: DENIES COUGH OR DYSPNEA. GASTROINTESTINAL: DENIES ABDOMINAL PAIN, NAUSEA, VOMITING, OR DIARRHEA. GENITOURINARY: DENIES DYSURIA OR HEMATURIA. SKIN: DENIES RASH OR ITCHING. MUSCULOSKELETAL: DENIES BACK PAIN, JOINT PAIN, OR MYALGIA. NEUROLOGIC: DENIES HEADACHE, NUMBNESS, DIZZINESS, OR WEAKNESS. PSYCHIATRIC: DENIES ANXIETY OR DEPRESSION. [facility] Past Medical History Medical History Anxiety Colon cancer screening Tubal Surgical History Surgical History H/O oophorectomy H/O sinus surgery History of bunionectomy Family History Family History Grandparent Acute myocardial infarction Sibling Acute myocardial infarction Mother Diabetes mellitus Kidney failure Father Ischemic bowel disease Social History Social History Social History: The patient lives with her significant other Oscar. She has no biological children. She does have a dog and a cat. 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 She occasionally drinks alcohol socially. She has never smoked. She does not use any marijuana or illicit drugs. She has no power of defense attorney. Code status full code Smoking status: Never smoker Alcohol intake: never Substance use: never Substance use type: does not use Gender identity (if verbalized by the patient): Female Sexual Orientation (if Verbalized by the Patient): Straight or Heterosexual Spiritual care concerns: No Exam Narrative: GENERAL: WELL-APPEARING, WELL-NOURISHED, AND IN NO ACUTE DISTRESS. HEAD: NORMOCEPHALIC, ATRAUMATIC. EYES: PERRLA AND EOMI. ENT: NARES CLEAR, NO RHINORRHEA OR EPISTAXIS. MUCOUS MEMBRANES MOIST. OROPHARYNX WITHOUT TONSILLAR HYPERTROPHY EXUDATE OR OTHER LESIONS. THERE IS MILD POSTERIOR PHARYNGEAL ERYTHEMA. BILATERAL TYMPANIC MEMBRANE ERYTHEMA. NECK: SUPPLE. NO ADENOPATHY OR MASSES. NO CAROTID BRUITS OR JVD CHEST: CLEAR TO AUSCULTATION. NO RESPIRATORY DISTRESS. NO WHEEZES RALES OR RHONCHI HEART: REGULAR RATE AND RHYTHM. NO MURMUR HEARD. NORMAL PERIPHERAL PULSES. ABDOMEN: SOFT, NONTENDER, NONDISTENDED, NORMAL ACTIVE BOWEL SOUNDS. EXTREMITIES: NORMAL RANGE OF MOTION. NO EDEMA. SKIN: WARM, DRY, NO RASH. NEURO: NO FOCAL DEFICITS. ALERT AND ORIENTED X3. PSYCH: NORMAL MOOD AND AFFECT. Course Course Emergency Course: THIS IS A 51-YEAR-OLD FEMALE WHO PRESENTED FOR EVALUATION OF SICK SYMPTOMS. STREP, COVID, INFLUENZA WERE ALL NEGATIVE. EXAM IS CONSISTENT WITH ACUTE VIR
== END 2022-11-03 20:39 | disposition home or self-care (01) ==
PROVIDERS: Emergency Provider Nurse Practitioner; PCP Student in an Organized Health Care Education/Training Program
DX: B34.9 Viral infection, unspecified (principal); Z20.822 Contact with and (suspected) exposure to COVID-19; F41.9 Anxiety disorder, unspecified
CPT/HCPCS: 87081; 87426; 87804; 87880; 99213; C9803; G0463

== ENCOUNTER 2023-07-10 12:10 | Emergency (ER) | payer OTHER, SELFPAY ==
--- NOTE | ~2023-07-10 | XR_ITS ---
EXAMINATION: XR hand RT min 3V INDICATION: Right hand pain TECHNIQUE: Three views of the right hand are obtained. COMPARISON: None available FINDINGS: Bone alignment is normal. There is no fracture. 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 IMPRESSION: 1. No acute osseous abnormality. Reviewed, dictated and finalized at location A.
[2023-07-10 12:21] VITALS: BP 144/75; PULSE 48; RESP 16; TEMP 36.4; O2SAT 100
--- NOTE | 2023-07-10 12:23 | ED.UPPEXIN ---
HPI - Extremity Injury (Upper) General Chief Complaint: Extremity Injury, Upper Stated Complaint: right hand injury Time Seen by Provider: 07/10/23 12:41 Source: patient and RN notes reviewed Mode of arrival: ambulatory Limitations: no limitations History of Present Illness HPI narrative: 52-year-old female presents concern for right hand pain. Reports 1 week ago she hit her right hand forcefully on a deck rail. She reports it was swollen and bruised, that has improved throughout the week but she continues to have pain and lateral hand beneath the 5th digit. Reports she has been using ice and taking ibuprofen. Reports the pain is radiating up to her elbow. She denies open skin, redness, warmth MD complaint: injury to: right and hand Related Data Home Medications Medication Instructions Recorded Confirmed alprazolam 1 mg tablet 1 mg PO BID 09/03/21 07/10/23 lisinopril 5 mg tablet 5 mg PO AC 07/10/23 07/10/23 Allergies Allergy/AdvReac Type Severity Reaction Status Date / Time poison umer extract Allergy Mild RASH Verified 07/10/23 12:42 Review of Systems Review of Systems: CONSTITUTIONAL: Denies malaise, chills, sweats, or fever. SKIN: Denies rash or itching, open skin, laceration, abrasion, redness, warmth, swelling. MUSCULOSKELETAL: Reports right hand pain NEUROLOGIC: Denies numbness, weakness All systems reviewed & are unremarkable except as noted in HPI and below PMFSH Past Medical History Medical History Anxiety Colon cancer screening Tubal Surgical History Surgical History H/O oophorectomy H/O sinus surgery History of bunionectomy Family History Family History Grandparent Acute myocardial infarction Sibling Acute myocardial infarction Mother Diabetes mellitus Kidney failure Father Ischemic bowel disease Social History Social History Social History: The patient lives with her significant other Oscar. She has no biological children. She does have a dog and a cat. 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 She occasionally drinks alcohol socially. She has never smoked. She does not use any marijuana or illicit drugs. She has no power of attorney at law. Code status full code Smoking status: Never smoker Alcohol intake: never Substance use: never Substance use type: does not use Living arrangements: with family Gender identity (if verbalized by the patient): Female Sexual Orientation (if Verbalized by the Patient): Straight or Heterosexual Spiritual care concerns: No Comments At time of signature, agree with nursing past medical, surgical, social and family history. There is no relevant family history pertinent to the presenting complaint Exam Narrative: GENERAL: Well-appearing, well-nourished, and in no acute distress. HEAD: Normocephalic EYES: PERRLA, conjunctivae clear NECK: Supple. CHEST: Speaks in full sentences. No respiratory distress. HEART: Regular rate and rhythm. Normal and equal peripheral pulses. EXTREMITIES: Right hand and digits of hand have normal strength and sensation. 5/5 strength with digit flexion, extension. Range of motion normal. No clubbing, cyanosis, or edema noted. Mild lateral ecchymosis noted. Lateral hand tenderness. Skin intact. Normal digital cascade with flexion of fingers, median, ulnar and radial nerve intact. Normal sensation of each side of finger. Can perform 'okay' sign, 'cross over finger test of index and middle fingers' and 'thumbs up' sign. No scissoring. Normal thumb opposition. Good capillary refill and radial pulse. Distal capillary refill less than 3 seconds. Patient is right/left hand dominant SKIN: Warn, dry, intact, pink. No rash NEURO: Alert and oriented x3. PSYCH: N
== END 2023-07-10 12:59 | disposition home or self-care (01) ==
PROVIDERS: Emergency Provider Nurse Practitioner; PCP Anesthesiology
DX: S60.221A Contusion of right hand, initial encounter (principal); W22.09XA Striking against other stationary object, initial encounter; F41.9 Anxiety disorder, unspecified
CPT/HCPCS: 73130; 99213; G0463

== ENCOUNTER 2023-07-26 11:55 | Emergency (ER) | payer OTHER, SELFPAY ==
--- NOTE | 2023-07-26 12:03 | ED.URI ---
HPI - URI/Sore Throat General Chief Complaint: Upper Respiratory Infection Stated Complaint: Sinus Time Seen by Provider: 07/26/23 12:04 Source: patient Mode of arrival: ambulatory Limitations: no limitations History of Present Illness HPI Narrative: Tawnya is a 52-year-old female patient presenting to the clinic today with complaints of a cough and chest congestion x5 days. She has taken 3 COVID test and they have all been negative. She denies any fever or chills. States that she is coughing so hard she has be getting a headache from it. History of sinusitis in the past. Also reports that she had heartburn with few days ago and she takes Prilosec normally for this. She denies any shortness of breath Related Data Allergies Allergy/AdvReac Type Severity Reaction Status Date / Time poison umer extract Allergy Mild RASH Verified 07/10/23 12:42 Review of Systems Review of Systems: Pertinent positives per HPI. Patient denies any fever, chills, rash, headache, visual changes, dizziness, sore throat, shortness of breath, chest pain, palpitations, nausea, vomiting, diarrhea, constipation, abdominal pain, or any urinary issues. [facility] Past Medical History Medical History Anxiety Colon cancer screening Tubal Surgical History Surgical History H/O oophorectomy H/O sinus surgery History of bunionectomy Family History Family History Grandparent Acute myocardial infarction Sibling Acute myocardial infarction Mother Diabetes mellitus Kidney failure Father Ischemic bowel disease Social History Social History Social History: The patient lives with her significant other Oscar. She has no biological children. She does have a dog and a cat. 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 She occasionally drinks alcohol socially. She has never smoked. She does not use any marijuana or illicit drugs. She has no power of trust and estates attorney. Code status full code Smoking status: Never smoker Alcohol intake: never Substance use: never Substance use type: does not use Living arrangements: with family Gender identity (if verbalized by the patient): Female Sexual Orientation (if Verbalized by the Patient): Straight or Heterosexual Spiritual care concerns: No Comments At the time of my signature, I reviewed and agree with the nursing past medical, surgical, social, and family history. There is no relevant family history pertinent to the patient complaint. Exam Narrative: General: Well-developed, well nourished, in no apparent distress Head: Normocephalic, atraumatic Eyes: Pupils equally round and reactive to light bilaterally, EOM intact, sclera and conjunctive clear, no discharge, lids normal Ears: TMs intact and clear, ear canals clear, no drainage, grossly hearing normal. Nose: Nares patent, clear discharge, no inflammation, no sinus tenderness. Mouth: Oropharynx without lesions or masses, good dentition, MMM. Postnasal drip Neck: Supple, trachea midline, no enlargement of anterior or posterior cervical nodes, no thyroid masses or goiter palpable. Cardio: Regular rate and rhythm, s1 and s2 normal, no murmur appreciated. Resp: Clear to auscultation bilaterally anteriorly and posteriorly, no rhonchi, rales, wheezing or rubs Course Course Emergency Course: Portions of this record may have been created with voice recognition software. Level of Care: Express Care Visit Vital Signs Vital signs: Vital signs reviewed MDM - URI/Sore Throat MDM Narrative Medical decision making narrative: At the time of visit patient is resting on the exam table. Lung sounds are clear. I suspect patient has URI with an acute cough. Will send in prescription for Stephanie
[2023-07-26 12:07] VITALS: BP 157/88; PULSE 61; RESP 16; TEMP 36.6; O2SAT 98
== END 2023-07-26 12:24 | disposition home or self-care (01) ==
PROVIDERS: Emergency Provider Nurse Practitioner Family; PCP Nurse Practitioner
DX: R05.1 Acute cough (principal); J06.9 Acute upper respiratory infection, unspecified
CPT/HCPCS: 99213; G0463

== ENCOUNTER 2024-04-05 07:46 | Outpatient (CLI) | payer OTHER, SELFPAY ==
--- NOTE | ~2024-04-05 | US_ITS ---
Abdominal Sonogram: Real-time sonographic imaging of the abdomen was performed. Clinical History: Abdominal pain Findings: The liver appears normal with no evidence of mass lesion or bile duct dilatation. Main por sal vein demonstrates normal direction of flow. The spleen is normal in size without evidence of foca l lesion. The gallbladder is well distended, and appears normal with no evidence of gallstone or wal l thickening. The common bile duct measures 5 mm. The visualized pancreas, aorta, and IVC are unrema rkable. The right kidney measures 10.6 cm in length and the left kidney measures 11.1 cm. There is no hydronephrosis or renal calculus. Impression: Unremarkable abdominal ultrasound. Reviewed, dictated and finalized at location . Impression: Unremarkable abdominal ultrasound.
== END 2024-04-05 07:47 ==
LOC: MICIMG 07:47
PROVIDERS: PCP Emergency Medicine; Visit Provider Emergency Medicine
DX: R10.10 Upper abdominal pain, unspecified (principal)
CPT/HCPCS: 76700

== ENCOUNTER 2024-08-14 02:11 | Day surgery (SDC) | payer OTHER, SELFPAY ==
[2024-07-28 11:25] VITALS: BMI 28.2
[2024-08-14 13:20] VITALS: BP 111/77; PULSE 72; RESP 18; TEMP 36.6; O2SAT 97; BMI 28.3
[2024-08-14] MEDS: LACTATED RINGERS 1,000 ML 150 ML IV CONT (13:33)
--- NOTE | 2024-08-14 13:36 | WPDANESEPPF ---
Anes - Initial Pre Proc Eval Procedure: Operation Date: 08/14/24 14:30 Proposed Procedures p Screening Colonoscopy - Romie Osorio MD Date/Time: 08/14/24 13:36 Surgeon: Romie Osorio MD Pre Op Diagnosis: abn weight loss, personal hx of colon polyps Patient Data Age: 53 Gender: F Height: 1.65 m Weight: 77.2 kg Last Vital Signs Temp 97.8 F 08/14/24 13:20 Pulse 72 08/14/24 13:20 Resp 18 08/14/24 13:20 BP 111/77 08/14/24 13:20 Pulse Ox 97 08/14/24 13:20 O2 Del Method Room Air 08/14/24 13:20 Allergies Allergy/AdvReac Type Severity Reaction Status Date / Time poison umer extract Allergy Mild RASH Verified 08/14/24 13:18 milk Allergy Joint Pain Verified 08/14/24 13:18 Home Medications Medication Instructions Recorded Confirmed Type alprazolam 1 mg tablet 1 mg PO DAILY PRN Anxiety 07/28/24 08/14/24 History Patient hx anesthesia problems: none Family hx anesthesia problems: none Results Review: All pre-operative results and documents have been reviewed as part of the pre-operative evaluation. [facility] Past Medical History Medical History Anxiety Colon cancer screening Tubal Surgical History Surgical History H/O oophorectomy H/O sinus surgery History of bunionectomy Family History Family History Grandparent Acute myocardial infarction Sibling Acute myocardial infarction Mother Diabetes mellitus Kidney failure Father Ischemic bowel disease Social History Social History Social History: The patient lives with her significant other Oscar. She has no biological children. She does have a dog and a cat. 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 She occasionally drinks alcohol socially. She has never smoked. She does not use any marijuana or illicit drugs. She has no power of student development dean. Code status full code Smoking status: Never smoker Alcohol intake: never Substance use: never Substance use type: does not use Living arrangements: with family Gender identity (if verbalized by the patient): Female Sexual Orientation (if Verbalized by the Patient): Straight or Heterosexual Spiritual care concerns: No Anes - Eval Final PreProcedure Day of Procedure 08/14/24 13:36 Patient weight: normal Heart: regular rate and rhythm Lungs: clear to auscultation Airway: Mallampati scale class II Neurological: alert and oriented Last oral intake: >/= 8 hours ASA classification: I Emergent: no Anesthetic plan: proceed Anesthesia type and monitoring: general GIVS and standard monitoring Results Review: All pre-operative results and documents have been reviewed as part of the pre-operative evaluation. Pt very active w pickleball, gardening, no cp or sob. Informed Consent: The patient's anesthetic plan and its attendant risks and benefits were discussed with the patient/family/POA. Questions were solicited and answers provided to the satisfaction of the patient/family/POA.
[2024-08-14 13:58] LABS: BEDSIDEPREGUCG Negative (Negative)
--- NOTE | 2024-08-14 14:09 | P.HP_ITS ---
History of Present Illness History of Present Illness Consent: Risks, benefits, and alternatives have been discussed and questions answered. Patient agrees to proceed with procedure. Chief complaint: personal hx of colon polyps Narrative: Tawnya Webber is a 53 year old female with colon polyp in 2020 Review of Systems Review of Systems: All systems reviewed & are unremarkable except as noted in HPI and below PMFSH Past Medical History Medical History (Updated 08/14/24 @ 14:11 by Romie Osorio MD) Adenomatous colon polyp Anxiety Colon cancer screening Tubal Surgical History Surgical History H/O oophorectomy H/O sinus surgery History of bunionectomy Family History Family History Grandparent Acute myocardial infarction Sibling Acute myocardial infarction Mother Diabetes mellitus Kidney failure Father Ischemic bowel disease Social History Social History Social History: The patient lives with her significant other Oscar. She has no biological children. She does have a dog and a cat. 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 She occasionally drinks alcohol socially. She has never smoked. She does not use any marijuana or illicit drugs. She has no power of corporate associate attorney. Code status full code Smoking status: Never smoker Alcohol intake: never Substance use: never Substance use type: does not use Living arrangements: with family Gender identity (if verbalized by the patient): Female Sexual Orientation (if Verbalized by the Patient): Straight or Heterosexual Spiritual care concerns: No Meds Home Medications and Allergies Home Medications Medication Instructions Recorded Confirmed Type alprazolam 1 mg tablet 1 mg PO DAILY PRN Anxiety 07/28/24 08/14/24 History Allergies Allergy/AdvReac Type Severity Reaction Status Date / Time poison umer extract Allergy Mild RASH Verified 08/14/24 13:18 milk Allergy Joint Pain Verified 08/14/24 13:18 Vital Signs Vital Signs - 24 hr 08/14/24 13:20 Temperature 97.8 F Pulse Rate 72 Respiratory Rate 18 Blood Pressure 111/77 Pulse Oximetry 97 Oxygen Delivery Room Air Exam Const: General: comfortable and no acute distress HENMT: Face/Nose/Sinus: Normal nares present Eyes: General: appearance normal, both eyes and all related structures Neck: Neck: no JVD Resp: Auscultation: clear to auscultation bilaterally Cardio: Rate: regular rate Rhythm: regular rhythm GI: Inspection: non-distended GI Palp: Yes Soft to palpation Skin: General skin exam: normal color Neuro: General: gait normal Speech: normal speech Extrem: General: normal to inspection Psych: Mental Status: mental status grossly normal Assessment and Plan Assessment and plan (1) Adenomatous colon polyp: Code(s): D12.6 - Benign neoplasm of colon, unspecified Status: Acute Assessment and Plan: colonoscopy
[2024-08-14 14:28] VITALS: BP 103/52; PULSE 69; RESP 22; O2SAT 95
[2024-08-14 14:38] VITALS: BP 109/70; PULSE 67; RESP 18; O2SAT 99
[2024-08-14 14:48] VITALS: BP 137/80; PULSE 77; RESP 20; O2SAT 99
== END 2024-08-14 15:01 | disposition home or self-care (01) ==
PROVIDERS: Anesthesiology; PCP Emergency Medicine; Visit Provider Internal Medicine Gastroenterology
PROC: 0DJD8ZZ Inspection of Lower Intestinal Tract, Via Natural or Artificial Opening Endoscopic (ICD-10-PCS; CPT 45378; principal; 2024-08-14 14:30)
DX: Z12.11 Encounter for screening for malignant neoplasm of colon (principal); D12.0 Benign neoplasm of cecum; D12.3 Benign neoplasm of transverse colon; K64.8 Other hemorrhoids
CPT/HCPCS: 45385; 88305; J2704; J7120

== ENCOUNTER 2024-08-25 06:43 | Outpatient (CLI) | payer OTHER, SELFPAY ==
--- NOTE | ~2024-08-25 | NM_ITS ---
EXAMINATION: NM hepatobiliary wo pharm DATE: 08/25/2024 13:24 INDICATION: Upper abdominal pain COMPARISON: None. TECHNIQUE: 5.1 mCi Tc-99m mebrofenin (Choletec) was administered intravenously. Scintigraphic images of the abdomen were obtained for one hour. At the 1 hour time point, the patient drank 8 oz Ensure, and imaging was continued for 60 minutes. Gallbladder ejection fraction was calculated by the technol ogist. FINDINGS: There is normal clearance of radiotracer from the blood pool. There is homogeneous tracer u ptake by the liver. Activity progresses to the bowel and gallbladder. The gallbladder ejection fract ion (GBEF) is 90%. Note that with this technique, normal GBEF >= 33%. IMPRESSION: 1. Normal hepatobiliary scan. Reviewed, dictated and finalized at location A.
== END 2024-08-25 06:44 | disposition home or self-care (01) ==
LOC: ANHIMG 06:45
PROVIDERS: PCP Emergency Medicine; Visit Provider Emergency Medicine
DX: R10.11 Right upper quadrant pain (principal)
CPT/HCPCS: 78226; A9537

== ENCOUNTER 2024-09-06 12:08 | Outpatient (CLI) | payer OTHER, SELFPAY ==
--- NOTE | ~2024-09-06 | DEXA_ITS ---
Bone Density Report Name: GILSON RON Age: 53 Sex: Female Ethnicity: White Date of : 1970 Indication: screening for osteoporosis; Referring Provider: CLEVE HARKINS Study: Bone densitometry was performed. Exam Date: September 06, 2024 Accession number: [id number] Bone Density: Region BMD T-score Z-score Classification AP Spine(L1-L4) 1.316 2.4 3.6 Normal Femoral Neck (Left) 1.009 1.4 2.5 Normal Total Hip (Left) 1.070 1.0 1.8 Normal Femoral Neck (Right) 0.890 0.4 1.5 Normal Total Hip (Right) 1.080 1.1 1.8 Normal Femoral Neck Mean 0.949 0.9 2.0 Normal Total Hip Mean 1.075 1.1 1.8 Normal World Health Organization criteria for BMD impression classify patients as: Normal (T-score at or above -1.0), Osteopenia (T-score between -1.0 and -2.5), or Osteoporosis (T-score at or below -2.5). Clinical Information Provided by Patient: Has used the following medications: Vitamin D, Calcium, multivitamins Patient maximum height was 66.9 No regular weight bearing exercise Drinks caffeinated beverages Onset of menses at age 13 Premenopausal Impression: The patient's bone mass is within expected range for age, gender and ethnicity. Discussion: BONE DENSITY IS WITHIN EXPECTED LIMITS FOR AGE, SEX AND RACE. Bone density is within expected limits for age, sex and race at all sites measured. The patient should follow a healthful lifestyle (good nutrition with adequate calcium and vitamin D, and appropriate weight-bearing exercise). Follow-Up: Consider repeating this study in 5 years or sooner if there is some new clinical indication. Reported by: ILEANA on 09/06/2024 12:38:00 PM. Reviewed, dictated and finalized at location Melisa MUÑIZ
== END 2024-09-06 12:09 | disposition home or self-care (01) ==
PROVIDERS: PCP Emergency Medicine; Visit Provider Emergency Medicine
DX: Z78.0 Asymptomatic menopausal state (principal)
CPT/HCPCS: 77080

== ENCOUNTER 2024-11-25 09:38 | Outpatient (CLI) | payer OTHER, SELFPAY ==
--- NOTE | ~2024-11-25 | MR_ITS ---
EXAMINATION: foot LT wo con DATE: 11/25/2024 10:33 INDICATION: Left foot pain post bunionectomy 4 months prior. TECHNIQUE: Magnetic resonance imaging (MRI) of the left fore/mid foot was performed without intraveno us contrast. Sequences included sagittal and coronal T1-weighted FSE; axial, sagittal and coronal flu id sensitive FSE STIR and axial PD-weighted FS FSE. COMPARISON: None FINDINGS: 30 degrees hallux valgus. No fracture or pathologic marrow replacing process. Postoperative changes o f bunionectomy and osteotomy at the medial head of the first metatarsal noted likely realignment oste otomy at the neck of the first metatarsal with magnetic field artifact suggesting a fixation screw. T he magnetic field artifact limits assessment of the immediately surrounding marrow signal. Mild to mo derate osteoarthritis at the first metatarsophalangeal abdomen the second and third tarsal metatarsal joints with mild osteoarthritis at the remaining tarsal metatarsal, metatarsophalangeal and interpha langeal joints. No joint effusions. IMPRESSION: 1. Postoperative change of bunionectomy and likely internally fixed realignment osteotomy at the neck of the first metatarsal. Assessment for degree of fusion at the osteotomy is limited with MRI and if this is of clinical concern would recommend correlation with radiographs or CT. 2. 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 Reviewed, dictated and finalized at location B. CONCENTRATOR IMPRESSION: 1. Postoperative change of bunionectomy and likely internally fixed realignment osteotomy at the neck of the first metatarsal. Assessment for degree of fusion at the osteotomy is limited with MRI and if this is of clinical concern would recommend correlation with radiographs or CT. 2. 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
== END 2024-11-25 09:39 | disposition home or self-care (01) ==
PROVIDERS: PCP Emergency Medicine; Visit Provider Podiatrist Foot & Ankle Surgery
DX: M19.072 Primary osteoarthritis, left ankle and foot (principal); Z98.890 Other specified postprocedural states
CPT/HCPCS: 73718